=== PATIENT | female | born 1960 | race Caucasian/White ===

== ENCOUNTER → 2016-07-21 | Outpatient (REF) | payer OTHER | LOC: M SFHCWAGY 16:14 | PROVIDERS: ATTEND Nurse Practitioner Family | DX: Z12.4 Encounter for screening for malignant neoplasm of cervix (principal) ==

== ENCOUNTER → 2016-08-06 | Outpatient (CLI) | payer OTHER ==
[2016-08-06 09:57] LABS: ALBUMIN 3.8 GM/DL (3.2-5.2); ALBUMIN/GLOBULIN RATIO 1.27 (1.00-1.93); ALKALINE PHOSPHATASE 120 U/L (45-117); ALT/SGPT 36 U/L (12-78); ANION GAP 7 MEQ/L (8-16); AST/SGOT 19 U/L (15-37); BILIRUBIN,TOTAL 0.8 MG/DL (0.2-1.0); BLOOD UREA NITROGEN 13 MG/DL (7-18); CALCIUM LEVEL 8.4 MG/DL (8.5-10.1); CARBON DIOXIDE LEVEL 32 MEQ/L (21-32); CHLORIDE LEVEL 106 MEQ/L (98-107); CHOLESTEROL LEVEL 166 MG/DL (<200); CREATININE FOR GFR 0.76 MG/DL (0.55-1.02); GLOMERULAR FILTRATION RATE > 60.0 (>51); GLUCOSE, FASTING 104 MG/DL (70-105); SODIUM LEVEL 145 MEQ/L (136-145); TOTAL PROTEIN 6.8 GM/DL (6.4-8.2); TRIGLYCERIDES LEVEL 68 MG/DL (<150)
== END ==
LOC: M LAB 08:59
PROVIDERS: ATTEND Family Medicine
DX: Z00.00 Encounter for general adult medical examination without abnormal findings (principal)

== ENCOUNTER → 2016-08-09 | Outpatient (REF) | payer OTHER | LOC: M LAB REF 15:15 | PROVIDERS: ATTEND Ophthalmology | DX: D23.39 Other benign neoplasm of skin of other parts of face (principal) ==

== ENCOUNTER → 2016-12-23 | Outpatient (CLI) | payer OTHER ==
[2016-12-23 18:41] LABS: ANION GAP 6 MEQ/L (8-16); BLOOD UREA NITROGEN 15 MG/DL (7-18); CARBON DIOXIDE LEVEL 29 MEQ/L (21-32); CHLORIDE LEVEL 106 MEQ/L (98-107); CREATININE FOR GFR 0.75 MG/DL (0.55-1.02); FREE T4 1.24 NG/DL (0.76-1.46); GLOMERULAR FILTRATION RATE > 60.0 (>51); GLUCOSE, FASTING 96 MG/DL (70-105); POTASSIUM SERUM 3.6 MEQ/L (3.5-5.1); SODIUM LEVEL 141 MEQ/L (136-145)
[2016-12-23 18:44] LABS: CALCIUM OXALATE CRYSTALS SMALL
== END ==
LOC: M LAB 16:54
PROVIDERS: ATTEND Hospitalist
DX: I10 Essential (primary) hypertension (principal)

== ENCOUNTER 2018-07-25 07:35 | Emergency (ER) | payer OTHER ==
[~2018-07-25] VITALS: Ht 165.1 cm; Wt 77.3 kg
[2018-07-25] MEDS ORDERED: VITA100T59 PO (07:47)
[2018-07-25] MEDS ORDERED: VITA100066 PO (07:47)
[2018-07-25] MEDS ORDERED: VITATAB11 PO (07:47)
[2018-07-25] MEDS ORDERED: FAMOTIDINE IV BAG 20 MG in APPROPRIATE DILUENT 1 EA IV ONE (08:00)
[2018-07-25] MEDS ORDERED: NS 1,000 ML IV ONE (08:00)
[2018-07-25] MEDS ORDERED: METOCLOPRAMIDE INJ 10MG/2ML VIAL (J2765) IV ONE (08:00)
[2018-07-25 08:35] LABS: BASO % 0.1 % (0.0-1.0); EOS % 0.2 % (0.0-3.0); HEMATOCRIT 43.5 % (36.0-47.0); HEMOGLOBIN 14.3 g/dl (12.0-15.5); LYMPH # 0.5 10^3/uL (1.5-4.5); LYMPH % 5.2 % (24.0-44.0); MEAN CORPUSCULAR HEMOGLOBIN 27.9 pg (27.0-33.0); MEAN CORPUSCULAR HGB CONC 32.9 g/dl (32.0-36.5); MONO # 0.4 10^3/uL (0.0-0.8); MONO % 4.3 % (0.0-5.0); NEUTROPHILS # 8.1 10^3/uL (1.8-7.7); NEUTROPHILS % 89.9 % (36.0-66.0); PLATELET COUNT, AUTOMATED 174 10^3/uL (150-450); RED BLOOD COUNT 5.12 10^6/uL (4.00-5.40)
[2018-07-25 08:58] LABS: ALBUMIN 3.9 GM/DL (3.2-5.2); ALT/SGPT 28 U/L (12-78); BILIRUBIN,DIRECT 0.2 MG/DL (0.0-0.2); BILIRUBIN,TOTAL 0.9 MG/DL (0.2-1.0); BLOOD UREA NITROGEN 16 MG/DL (7-18); CALCIUM LEVEL 8.7 MG/DL (8.5-10.1); CARBON DIOXIDE LEVEL 27 MEQ/L (21-32); CHLORIDE LEVEL 105 MEQ/L (98-107); CREATININE FOR GFR 0.84 MG/DL (0.55-1.30); GLOMERULAR FILTRATION RATE > 60.0 (>51); GLUCOSE, FASTING 159 MG/DL (70-100); LIPASE 87 U/L (73-393); POTASSIUM SERUM 3.8 MEQ/L (3.5-5.1); SODIUM LEVEL 139 MEQ/L (136-145); TOTAL PROTEIN 6.9 GM/DL (6.4-8.2)
--- NOTE | 2018-07-25 08:58 | REP ---
Abdomen series: Four views. History: Abdomen pain. Comparison chest x-ray: November 20, 2006. Findings: Upright chest radiograph shows clear well inflated lungs. No evidence of infiltrate or free subdiaphragmatic air. Heart is mildly prominent with cardiothoracic ratio measuring 49.8%. It is somewhat more prominent than on the prior study. Pulmonary vasculature is not increased. No pleural effusion is seen. Supine and erect views of the abdomen demonstrate small quantities of air and fluid in the large and small bowel. No significant air fluid level is seen. Question enteritis. No mass, organomegaly or pathologic calcification is seen. Impression: Mildly prominent heart. Small quantities of air and fluid in the small and large bowel, question enteritis. No evidence of obstruction or free air. Electronically Signed by Jimenez Calero MD 07/25/2018 06:47 P
[2018-07-25] MEDS ORDERED: CHLO125TA PO (10:33)
[2018-07-25 11:21] VITALS: BP 162/96
--- NOTE | 2018-07-26 08:08 | ECGEPIP ---
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
== END 2018-07-25 11:40 | disposition home or self-care (01) ==
LOC: M ED 07:35
DX: R11.2 Nausea with vomiting, unspecified (principal); R19.7 Diarrhea, unspecified; I10 Essential (primary) hypertension
CPT/HCPCS: 74021; 80048; 80076; 83690; 85025; 87507; 93005; 96361; 96365; 96367; 96374; 99284; J2765

== ENCOUNTER 2019-02-28 06:47 | Day surgery (SDC) | payer OTHER ==
[~2019-02-28] VITALS: Ht 162.6 cm; Wt 77.1 kg
[~2019-02-28 06:47] MED LIST: CHLO125TA PO; VITA100066 PO; VITA100T59 PO; VITATAB11 PO; VITATAB73 PO
[2019-02-28] MEDS ORDERED: NS 1,000 ML IV ONE (07:00)
[2019-02-28] MEDS ORDERED: propofoL 200 MG/20 ML VIAL As Ordered ONE ×3 (07:34→08:49)
[2019-02-28] MEDS ORDERED: METOPROLOL 5 MG/5 ML VIAL As Ordered ONE (07:34)
[2019-02-28] MEDS ORDERED: LIDOCAINE 2% INJ 100 MG/5 ML SDV (FOR ANES.) As Ordered ONE (07:34)
[2019-02-28] MEDS ORDERED: hydrALAZINE INJ 20 MG/ML VIAL As Ordered ONE (07:40)
--- NOTE | 2019-02-28 08:20 | ROOR ---
Patient Name: Annabelle Pérez Procedure Date: 02/28/2019 7:31 AM Date of : 1960 Age: 59 Room: [facility] Gender: Female Note Status: Finalized Procedure: Colonoscopy Indications: Screening for colorectal malignant neoplasm Providers: Bao Lieberman MD Referring MD: Stephani NUNES DO Requesting Provider: Medicines: Monitored Anesthesia Care Complications: No immediate complications. Procedure: Pre-Anesthesia Assessment: - Prior to the procedure, a History and Physical was performed, and patient medications and allergies were reviewed. The patient is competent. The risks and benefits of the procedure and the sedation options and risks were discussed with the patient. All questions were answered and informed consent was obtained. Patient identification and proposed procedure were verified by the physician, the nurse and the anesthesiologist in the procedure room. Mental Status Examination: alert and oriented. Airway Examination: normal oropharyngeal airway and neck mobility. Respiratory Examination: clear to auscultation. CV Examination: normal. Prophylactic Antibiotics: The patient does not require prophylactic antibiotics. Prior Anticoagulants: The patient has taken no previous anticoagulant or antiplatelet agents. ASA Grade Assessment: II - A patient with mild systemic disease. After reviewing the risks and benefits, the patient was deemed in satisfactory condition to undergo the procedure. The anesthesia plan was to use monitored anesthesia care (MAC). Immediately prior to administration of medications, the patient was re-assessed for adequacy to receive sedatives. The heart rate, respiratory rate, oxygen saturations, blood pressure, adequacy of pulmonary ventilation, and response to care were monitored throughout the procedure. The physical status of the patient was re-assessed after the procedure. The Colonoscope was introduced through the anus and advanced to the terminal ileum, with identification of the appendiceal orifice and IC valve. The colonoscopy was performed without difficulty. The patient tolerated the procedure well. The quality of the bowel preparation was good. The terminal ileum, ileocecal valve, appendiceal orifice, and rectum were photographed. Scope insertion time was 4 minutes. Scope withdrawal time was 10 minutes. The total duration of the procedure was 14 minutes. Findings: The perianal and digital rectal examinations were normal. The terminal ileum appeared normal. A 5 mm polyp was found in the descending colon. The polyp was sessile. The polyp was removed with a cold snare. Resection and retrieval were complete. Verification of patient identification for the specimen was done by the physician and nurse using the patient's name, date and medical record number. Estimated blood loss was minimal. Non-bleeding external and internal hemorrhoids were found during retroflexion. The hemorrhoids were small. Impression: - The examined portion of the ileum was normal. - One 5 mm polyp in the descending colon, removed with a cold snare. Resected and retrieved. - Non-bleeding external and internal hemorrhoids. Recommendation: - Patient has a contact number available for emergencies. The signs and symptoms of potential delayed complications were discussed with the patient. Return to normal activities tomorrow. Written discharge instructions were provided to the patient. - High fiber diet. - Continue present medications. - Await pathology results. - Repeat colonoscopy in 5 years for surveillance based on pathology results. - Telephone GI clinic for pathology results in 2 weeks. - Return to primary care physician. Bao Lieberman MD Bao Lieberman MD 02/28/2019 8:17:12 AM Electronically signed by Bao Lieberman MD Number of Addenda: 0 Note Initiated On: 02/28/2019 7:31 AM Estimated Blood Loss: Estimated blood loss was minimal.
[2019-02-28 08:35] VITALS: BP 184/97
== END 2019-02-28 08:45 | disposition home or self-care (01) ==
LOC: M OPP 06:47
PROVIDERS: ATTEND Internal Medicine Gastroenterology
DX: Z12.11 Encounter for screening for malignant neoplasm of colon (principal); K64.8 Other hemorrhoids; D12.4 Benign neoplasm of descending colon; Z88.0 Allergy status to penicillin; Z88.2 Allergy status to sulfonamides; Z83.79 Family history of other diseases of the digestive system

== ENCOUNTER → 2019-03-11 | Outpatient (CLI) | payer OTHER ==
--- NOTE | 2019-03-13 13:38 | SLEEPHOME ---
DATE OF PROCEDURE: 03/11/2019 ORDERED BY: RIAZ Byers Diagnostic home sleep testing was performed due to concern for the obstructive sleep apnea syndrome in this patient with a history of excessive somnolence and effort score for 13. For testing a nocturnal T3 respiratory monitoring device was used. Continuous record was made of pulse, oxygen saturation, airflow, chest, abdominal strain and body position. 9 hours and 41 minutes of data were reviewed. There were 7 hours and 7 minutes marked as time in bed. During the interval marked time in bed, there were 39 respiratory events identified of 10 seconds in duration or greater for a respiratory event index of 5.5. The events were obstructive and primarily related to the supine posture. Baseline pulse rate 58. Pulse rate ranged 47-102. Baseline saturation 95%. Saturations did fall to 89%. Testing was performed in both the supine and nonsupine positions. IMPRESSION: Abnormal home sleep testing with repetitive respiratory events and oxygen desaturations to 89% with a respiratory event index of 5.5 is consistent with the obstructive sleep apnea syndrome. RECOMMENDATIONS: As this patient's obstructive events were primarily associated with the supine position, sleep position retraining for avoidance of the supine posture is recommended. Should the patient's symptoms persist, referral for a more formal sleep evaluation would be reasonable.
== END ==
LOC: M SLEEP HO 15:41
PROVIDERS: ATTEND Physician Assistant
DX: I10 Essential (primary) hypertension (principal)

== ENCOUNTER → 2019-03-15 | Outpatient (CLI) | payer OTHER ==
--- NOTE | 2019-03-15 19:26 | ECHO ---
DATE OF PROCEDURE: 03/15/2019 DATE OF : 1960 AGE: 59 HEIGHT: 63 inches WEIGHT: 170 pounds BODY SURFACE AREA: 1.8 meters squared Outpatient. REFERRING PROVIDER: RIAZ Byers INDICATION: Hypertension. MEASUREMENTS: 2D Measurements: RV: 3.6 cm LV: 4.9 cm Septum: 1.1 cm Posterior wall: 1.1 cm Aortic root: 3.5 cm LA: 4.2 cm LVEF: 75% DOPPLER MEASUREMENTS: AV: 1.49 meters per second LVOT: 1.26 meters per second LVOT diameter: 1.9 cm E: 81, A: 73, E/A ratio: 1.1 Early mitral deceleration time: 250 milliseconds E-prime: 10.2, A prime: 8.8, E/E prime ratio: 7.9 PV: 0.8 meters per second Pulmonary artery acceleration time: 130 milliseconds RVSP: 29 mmHg IVC: 1.8 cm COMMENTS: Sinus bradycardia without intraventricular conduction disturbance. M-mode and two-dimensional echocardiography was performed with pulsed, continuous wave, color flow and tissue Doppler studies. Left ventricular wall thickness upper limits of normal with hyperkinetic wall motion. Slightly dilated left atrium with currently normal Doppler assessment of left ventricular (LV) diastolic function and estimated mean left atrial pressure. Normal right heart chamber sizes and motion with pulmonary arterial pressure upper limits of normal. Normal inferior vena cava (IVC) size and collapse against an elevated central venous pressure. Normal appearing valvular structures with very mild mitral and mild tricuspid insufficiency (physiological findings). Normal aortic root size. No apparent intracardiac mass or pericardial effusion.
== END ==
LOC: M CARPUL 15:49
PROVIDERS: ATTEND Physician Assistant
DX: I10 Essential (primary) hypertension (principal)

== ENCOUNTER → 2019-03-28 | Outpatient (CLI) | payer OTHER ==
--- NOTE | 2019-03-28 16:27 | REPMRS ---
Patient History The patient states she had a clinical breast exam in 03/2019. Patient is postmenopausal and had first child at age 37. Family history of breast cancer in maternal aunt, breast cancer in paternal aunt, colorectal cancer in father. No Hormone Replacement Therapy 3D TOMOSYNTHESIS WAS PERFORMED. Digital Woman Screen Mammo: March 28, 2019 - Exam #: [id number] Bilateral CC and MLO view(s) were taken. Technologist: Kiah Gallagher Technologist Prior study comparison: July 22, 2014, digital woman screen mammo performed at [facility]. August 22, 2012, digital woman screen mammo performed at [facility] [employer] [facility]. FINDINGS: The breast tissue is heterogeneously dense. This may lower the sensitivity of mammography. There has been no change in the appearance of the mammogram from the prior studies. There is a moderate amount of residual fibroglandular tissue which is fairly symmetric. There is no interval development of dominant mass, areas of architectural distortion, or clustered microcalcification typical of malignancy. Assessment: BI-RADS/ACR category 1 mammogram. Negative Mammogram. Recommendation Routine screening mammogram in 1 year (for women over age 40). This mammogram was interpreted with the aid of an FDA-approved computer-aided dectection system. THE LIFETIME RISK OF BREAST CANCER IS 20.0%, THEREFORE SUPPLEMENTAL SCREENING MRI OF THE BREASTS IS RECOMMENDED IN 6 MONTHS. Electronically Signed By: Carlos Franks MD 03/28/19 [id number]
== END ==
LOC: M WHC 15:15
PROVIDERS: ATTEND Nurse Practitioner Family
DX: Z12.31 Encounter for screening mammogram for malignant neoplasm of breast (principal); Z78.0 Asymptomatic menopausal state; Z80.0 Family history of malignant neoplasm of digestive organs

== ENCOUNTER → 2019-03-28 | Outpatient (REF) | payer OTHER ==
[2019-03-30 14:07] LABS: HPV HYBRID CAPTURE II Negative (Negative)
== END ==
LOC: M SFHCWAGY 15:44
PROVIDERS: ATTEND Nurse Practitioner Family
DX: Z12.4 Encounter for screening for malignant neoplasm of cervix (principal); N72 Inflammatory disease of cervix uteri
CPT/HCPCS: 87624; G0123

== ENCOUNTER → 2019-10-08 | Outpatient (CLI) | payer OTHER ==
[~2019-10-08] MED LIST changes: +PROHANCE 279.3MG/ML 15ML VIAL (A9576) As Ordered ONE
--- NOTE | 2019-10-08 16:06 | REP ---
MRI BILATERAL BREASTS WITH AND WITHOUT CONTRAST: HISTORY: High risk for breast cancer. COMPARISON: Mammogram 03/28/2019. Family history of breast cancer in maternal aunt and paternal aunt. TECHNIQUE: Multiple sequences obtained in the axial, coronal, and sagittal planes prior to and following the intravenous administration of 15 mL ProHance. Images are evaluated in [employer] software including dynamic axial T1 fat sat images post gadolinium, subtraction images, color overlay images, CAD imaging, and MIP reconstruction images. There is moderate fibroglandular tissue diffusely bilaterally. There is minimal background parenchymal enhancement. There is no axillary adenopathy. There is no significant cystic change. There are three subcentimeter hyperintensities in the left lobe of the liver, probably representing small hemangiomas or cysts. In the upper inner quadrant of the right breast there is an enhancing oval nodule in the mid third of the breast. This measures 4 x 5 x 3 mm. Margins are somewhat ill defined and slightly irregular. There is type 3 enhancement. No other enhancing nodular morphologic abnormality is seen bilaterally. IMPRESSION: BI-RADS category 4 suspicious. In the upper inner quadrant of the right breast, in the mid third of the breast approximately 7 cm from the nipple, there is a subcentimeter enhancing nodule which is somewhat oval in shape with ill-defined and slightly irregular margins. It measures 4 x 5 x 3 mm. There is no hyperintensity on the T2-weighted images to suggest that this represents a lymph node or fibroadenoma. Given its type 3 enhancement characteristics, I would recommend second-look ultrasound to attempt to identify for ultrasound-guided biopsy. If this cannot be identified by ultrasound, then MR guided biopsy would be recommended. Electronically Signed by Carlos Franks MD 10/08/2019 05:04 P
== END ==
LOC: M RAD 12:40
PROVIDERS: ATTEND Nurse Practitioner Family
DX: Z91.89 Other specified personal risk factors, not elsewhere classified (principal); Z80.3 Family history of malignant neoplasm of breast; K76.89 Other specified diseases of liver; N63.12 Unspecified lump in the right breast, upper inner quadrant
CPT/HCPCS: A9576; C8908

== ENCOUNTER → 2019-10-14 | Outpatient (CLI) | payer OTHER ==
[~2019-10-14] MED LIST changes: -PROHANCE 279.3MG/ML 15ML VIAL (A9576) As Ordered ONE
--- NOTE | 2019-10-15 01:08 | REP ---
RIGHT BREAST ULTRASOUND: Real-time sonographic evaluation of right breast is performed and correlated with the recent MRI performed 10/08/2019. A subcentimeter nodule was identified enhancing in the upper inner right breast. Ultrasound scanning of this region of the right breast does demonstrate a focal mildly lobulated hypoechoic nodule, which measures 7 x 4 x 4 mm. This is felt to correspond to the nodule on the MRI. By ultrasound, it is located approximately 4-5 cm from the nipple. Ultrasound-guided biopsy is recommended. IMPRESSION: ACR 4, suspicious. The enhancing nodule in the upper inner right breast is seen by ultrasound at the 1-o'clock position. A hypoechoic nodule is seen at that location, which is mildly lobulated, measuring 7 x 4 x 4 mm. Recommend ultrasound-guided biopsy. Electronically Signed by Carlos Franks MD 10/15/2019 10:36 A
== END ==
LOC: M RAD 15:38
PROVIDERS: ATTEND Nurse Practitioner Family
DX: Z12.31 Encounter for screening mammogram for malignant neoplasm of breast (principal)

== ENCOUNTER → 2019-10-21 | Outpatient (CLI) | payer OTHER ==
[~2019-10-21] MED LIST changes: +LISI-538 PO
== END ==
LOC: M PLALAB 16:07
PROVIDERS: ATTEND Surgery
DX: Z80.3 Family history of malignant neoplasm of breast (principal); Z80.8 Family history of malignant neoplasm of other organs or systems

== ENCOUNTER → 2019-10-23 | Outpatient (CLI) | payer OTHER ==
[2019-10-23 15:54] VITALS: BP 132/74
--- NOTE | 2019-10-23 16:26 | REP ---
DIAGNOSTIC UNILATERAL RIGHT BREAST MAMMOGRAPHY: Two views. HISTORY: Marker clip placement mammography. The patient is status post ultrasound-guided needle biopsy procedure. Comparison mammography March 28, 2019. Comparison MRI study October 08, 2019 and comparison sonography October 14, 2019. FINDINGS: CC and true mediolateral views of the right breast demonstrate a marker clip in place just medial to the plane of the nipple on the CC view and superiorly on the MLO view consistent with the position of the nodule sonographically and by MRI. IMPRESSION: Marker clip noted in place superiorly and slightly medially.
--- NOTE | 2019-10-24 08:48 | REP ---
FOCUSED RIGHT BREAST SONOGRAPHY: HISTORY: Sonographic guidance. Needle biopsy procedure. Comparison right breast sonography October 14, 2019. FINDINGS: Sonographic guidance is provided to Dr. Bee who performed ultrasound-guided needle biopsy procedure and marker clip placement.
--- NOTE | 2019-10-27 16:55 | ROOPDOC ---
[facility] Report Of Operation Report of Operation DATE OF PROCEDURE: 10/23/19 PREPROCEDURE DIAGNOSES: Right breast suspicious mass. POSTPROCEDURE DIAGNOSES: Right breast suspicious mass. PROCEDURE: Right breast mass ultrasound-guided biopsy with clip placement. SURGEON: Lauren Cole TOYS INSPECTOR: ANESTHESIA: Local anesthetic was used. ESTIMATED BLOOD LOSS: Approximately 1 mL. COMPLICATIONS: None. REMARKS: Clip seen in postbiopsy mammogram at expected position. DESCRIPTION OF PROCEDURE: Lidocaine 1% LOT [id number] Expiration 11/2022 Sodium Bicarbonate 8.4% LOT [id number] Expiration 11/2020 Hydromark clip LOT [id number] Expiration 06/2022 SHAPE 4 Bx device: BARD [id number] x10 cm LOT [id number] Expiration 07/2022 Informed consent was obtained. The most common risk and possible complications including bleeding, hematoma, bruising, infection, injury to surrounding structures were explained to the patient and she expressed understanding. Patient was placed on the bed in the supine position. Appropriate time out was done stating patients name, date of , and the procedure to be performed. The right breast was prepped and draped in the usual fashion. The ultrasound was used to confirm the location of the lesion in the right breast at 1:00 4 centimeters from the nipple. Plain Lidocaine 1% and 8.4% sodium bicarbonate 10:1 mix was used to anesthetize the skin, the biopsy site and tissues along the anticipated biopsy tract. Small skin incision was made with blade number 11. BARD Marquee 14G cannula with introducer ([id number]) was inserted through the incision and advanced under the ultrasound guidance to position immediately adjacent to the lesion. Next, the introducer was removed and BARD Marquee 14G biopsy device was places in the cannula. Pre-biopsy imaging, and post-biopsy imaging were captured. Five good core biopsies were taken at various levels of the lesion. Specimen was placed in formaldehyde, labeled with appropriate biopsy site and patients name, and sent to pathology for evaluation. Next, the biopsy device was withdrawn and a clip introducer was inserted into the biopsy site via the cannula. The Hydromark clip was deployed under direct vision. Post-clip placement image was captured. Manual pressure over the biopsy cavity and tract was held after the clip introducer was withdrawn. No bleeding was noted upon removal of the pressure. Post-biopsy mammogram of the right breast was obtained and showed clip in expected position. Postprocedural dressing was placed. Patient tolerated procedure well. Discharge instructions were discussed with the patient and she expressed understanding. LAUREN COLE DO October 27, 2019 16:47
== END ==
LOC: M WHCPRO 14:30
PROVIDERS: ATTEND Surgery
DX: N60.21 Fibroadenosis of right breast (principal)
CPT/HCPCS: 19083; 77065; 88305; G0279

== ENCOUNTER → 2020-08-03 | Outpatient (CLI) | payer OTHER ==
[~2020-08-03] MED LIST changes: -LISI-538 PO; +LISI20TA33 PO; +PROHANCE 279.3MG/ML 15ML VIAL As Ordered ONE
--- NOTE | 2020-08-04 10:04 | REP ---
INDICATION: RIGHT BREAST MASS. Six-month follow-up on right breast mass seen on screening MRI study. Ultrasound-guided needle biopsy was benign. Patient opted for six-month follow-up. COMPARISON: Comparison breast MRI study October 08, 2019. Comparison sonography October 14, 2019. Status post ultrasound-guided needle biopsy and clip placement October 23, 2019. Comparison clip placement mammography October 23, 2019. TECHNIQUE: Three Casandra MRI imaging was performed with a dedicated breast coil. Axial, coronal, and sagittal T1 and T2 weighted scans were obtained with and without fat saturation in the usual fashion. The study includes dynamically acquired post gadolinium-enhanced imaging with image subtraction. Maximum intensity projection and multi planar reformation imaging is included as well. This study is interpreted with the aid of [employer], an FDA approved computer aided detection (CAD) software program, on a dedicated breast MRI workstation. The gadolinium enhancement dose is 15 mL of intravenous ProHance. FINDINGS: There is a cylindrical T2 hyperintense structure containing a a magnetic field susceptibility artifact in the superior and slightly medial right breast. This represents the HydroMARK marker clip placement device. There is no evidence of significant breast cystic change. No axillary lymphadenopathy is seen on either side. On dynamically acquired sequential postcontrast images the small non masslike focus of enhancement and washout in the superomedial quadrant of the right breast that was seen previously is again noted. This is only a 5 mm focus of enhancement. It is unchanged in size and enhancement characteristics. It is not at the site of the HydroMARK placement indicating that this did not correspond to the biopsied lesion seen on ultrasound. It is more posterior. No change in the 10 month interval since the last MR. No new lesion is seen. Subtraction images are otherwise unremarkable. IMPRESSION: The previously identified enhancing 5 mm focus in the superomedial right breast is again noted unchanged in the 10 month interval since the prior study. This is posterior to the site of the HydroMARK needle biopsy marker placement. It apparently does not correspond with the hypoechoic tissue seen on sonography which was biopsied. BI-RADS category was previously assigned as category 4 suspicious findings. The MR findings are unchanged. Options include MR guided needle biopsy and continued follow-up by MRI scanning.. <Electronically signed by Imtiaz Calero > 08/04/20 1000
== END ==
LOC: M RAD 16:05
PROVIDERS: ATTEND Surgery
DX: N63.10 Unspecified lump in the right breast, unspecified quadrant (principal)

== ENCOUNTER → 2021-02-21 | Outpatient (CLI) | payer OTHER ==
[~2021-02-21] MED LIST changes: -PROHANCE 279.3MG/ML 15ML VIAL As Ordered ONE
[2021-02-21 11:08] LABS: BASO % 0.4 % (0.0-1.0); EOS # 0.1 10^3/uL (0.0-0.5); EOS % 2.1 % (0.0-3.0); HEMOGLOBIN 14.3 g/dl (12.0-15.5); LYMPH # 1.7 10^3/uL (1.5-5.0); LYMPH % 32.6 % (24.0-44.0); MEAN CORPUSCULAR HEMOGLOBIN 28.4 pg (27.0-33.0); MEAN CORPUSCULAR HGB CONC 33.3 g/dl (32.0-36.5); MEAN CORPUSCULAR VOLUME 85.5 fl (80.0-96.0); MONO # 0.7 10^3/uL (0.0-0.8); MONO % 12.6 % (2.0-8.0); NEUTROPHILS # 2.8 10^3/uL (1.5-8.5); NEUTROPHILS % 52.1 % (36.0-66.0); PLATELET COUNT, AUTOMATED 203 10^3/uL (150-450); RED BLOOD COUNT 5.03 10^6/uL (4.00-5.40); WHITE BLOOD COUNT 5.3 10^3/uL (4.0-10.0)
[2021-02-21 11:47] LABS: ALBUMIN 3.5 GM/DL (3.2-5.2); ALT/SGPT 32 U/L (12-78); BILIRUBIN,TOTAL 0.7 MG/DL (0.2-1.0); BLOOD UREA NITROGEN 10 MG/DL (7-18); CALCIUM LEVEL 8.6 MG/DL (8.8-10.2); CARBON DIOXIDE LEVEL 29 MEQ/L (21-32); CHLORIDE LEVEL 109 MEQ/L (98-107); CHOLESTEROL LEVEL 156 MG/DL (<200); CHOLESTEROL RISK RATIO 3.804 (<5); CREATININE FOR GFR 0.68 MG/DL (0.55-1.30); FREE T4 1.18 NG/DL (0.76-1.46); GLOMERULAR FILTRATION RATE > 60.0 (>45); GLUCOSE, FASTING 109 MG/DL (70-100); HDL CHOLESTEROL 41 MG/DL (>40); LDL CHOLESTEROL 94 MG/DL (<100); NON-HDL-C 115 MG/DL; POTASSIUM SERUM 4.1 MEQ/L (3.5-5.1); SODIUM LEVEL 143 MEQ/L (136-145); TOTAL PROTEIN 6.9 GM/DL (6.4-8.2); TRIGLYCERIDES LEVEL 105 MG/DL (<150)
[2021-02-22 10:13] LABS: TOTAL 25(OH) VITAMIN D 24.8 NG/ML (30.0-100.0)
== END ==
LOC: M LAB 10:33
PROVIDERS: ATTEND Family Medicine
DX: I10 Essential (primary) hypertension (principal); Z13.0 Encounter for screening for diseases of the blood and blood-forming organs and certain disorders involving the immune mechanism; E55.9 Vitamin D deficiency, unspecified

== ENCOUNTER → 2021-02-25 | Outpatient (CLI) | payer OTHER ==
[~2021-02-25] MED LIST changes: +PROHANCE 279.3MG/ML 15ML VIAL As Ordered ONE
--- NOTE | 2021-02-26 08:40 | REP ---
INDICATION: ABN IMAGING RT BREAST. COMPARISON: MRI 08/03/2020, 10/08/2019. TECHNIQUE: Three Casandra MRI imaging was performed with a dedicated breast coil. Axial, coronal, and sagittal T1 and T2 weighted scans were obtained with and without fat saturation in the usual fashion. The study includes dynamically acquired post gadolinium-enhanced imaging with image subtraction. Maximum intensity projection and multi planar reformation imaging is included as well. This study is interpreted with the aid of [employer]D, an FDA approved computer aided detection (CAD) software program, on a dedicated breast MRI workstation. The gadolinium enhancement dose is 15 mL of intravenous ProHance. FINDINGS: A biopsy clip is again seen in the upper right breast. No significant cystic change is seen in either breast. No axillary adenopathy is seen. There is mild to moderate scattered fibroglandular tissue symmetrically bilaterally. There is mild background parenchymal enhancement. The previously noted 5 mm focus of enhancement in the upper inner right breast remains stable since 10/08/2019. no new suspicious enhancing morphologic abnormality or mass is visualized. Two subcentimeter cysts are seen in the left lobe of the liver. IMPRESSION: BI-RADS category 3, probably benign MRI. Stable 5 mm focus of enhancement in the upper inner right breast has remained stable since 10/08/2019. Recommend follow-up MRI in 6-12 months. <Electronically signed by Carlos Franks > 02/26/21 [id number]
== END ==
LOC: M RAD 15:49
PROVIDERS: ATTEND Surgery
DX: R92.8 Other abnormal and inconclusive findings on diagnostic imaging of breast (principal)
CPT/HCPCS: A9576; C8908

== ENCOUNTER → 2021-05-19 | Outpatient (CLI) | payer BC ==
[~2021-05-19] MED LIST changes: -PROHANCE 279.3MG/ML 15ML VIAL As Ordered ONE
[2021-05-19 09:49] LABS: ALBUMIN 3.6 GM/DL (3.2-5.2); BLOOD UREA NITROGEN 13 MG/DL (7-18); CALCIUM LEVEL 9.9 MG/DL (8.8-10.2); CARBON DIOXIDE LEVEL 29 MEQ/L (21-32); CHLORIDE LEVEL 108 MEQ/L (98-107); CREATININE FOR GFR 0.86 MG/DL (0.55-1.30); GLOMERULAR FILTRATION RATE > 60.0 (>45); GLUCOSE, FASTING 125 MG/DL (70-100); NT-PRO BNP 64 PG/ML (<125); PHOSPHORUS LEVEL 4.3 MG/DL (2.5-4.9); POTASSIUM SERUM 4.2 MEQ/L (3.5-5.1); SODIUM LEVEL 142 MEQ/L (136-145)
== END ==
LOC: M LAB 07:44
PROVIDERS: ATTEND Internal Medicine Cardiovascular Disease
DX: R06.02 Shortness of breath (principal); I11.9 Hypertensive heart disease without heart failure

== ENCOUNTER → 2021-06-03 | Outpatient (CLI) | payer BC ==
[~2021-06-03] MED LIST changes: +ISOVUE-370 76% 100ML VIAL As Ordered ONE
[2021-06-03 15:49] LABS: APPEARANCE, URINE CLEAR (CLEAR); BACTERIA, URINE AUTO NEGATIVE (NEGATIVE); BILIRUBIN, URINE AUTO NEGATIVE (NEGATIVE); BLOOD, URINE BLOOD NEGATIVE (NEGATIVE); COLOR, URINE YELLOW (YELLOW); GLUCOSE, URINE (UA) AUTO NEGATIVE (NEGATIVE); KETONE, URINE AUTO NEGATIVE (NEGATIVE); LEUKOCYTE ESTERASE, URINE AUTO 1+ (NEGATIVE); NITRITE, URINE AUTO NEGATIVE (NEGATIVE); PROTEIN, URINE AUTO NEGATIVE (NEGATIVE); RBC, URINE AUTO 0 /HPF (0-3); SQUAMOUS EPITHELIAL CELL UR AU 0 /HPF (0-6); UROBILINOGEN, URINE AUTO 0.2 mg/dL (0.0-2.0); WBC, URINE AUTO 6 /HPF (0-3)
[2021-06-03 16:08] LABS: ALBUMIN 4.4 GM/DL (3.2-5.2); BLOOD UREA NITROGEN 26 MG/DL (7-18); CARBON DIOXIDE LEVEL 32 MEQ/L (21-32); CHLORIDE LEVEL 101 MEQ/L (98-107); CREATININE FOR GFR 0.86 MG/DL (0.55-1.30); GLOMERULAR FILTRATION RATE > 60.0 (>45); GLUCOSE, FASTING 105 MG/DL (70-100); PHOSPHORUS LEVEL 3.5 MG/DL (2.5-4.9); POTASSIUM SERUM 3.8 MEQ/L (3.5-5.1); SODIUM LEVEL 138 MEQ/L (136-145)
--- NOTE | 2021-06-03 16:47 | REP ---
INDICATION: HYPERTENSIVE HEART DISEASE W/O HEART FAILURE COMPARISON: None TECHNIQUE: Axial contrast-enhanced images from the lung bases to the mid pelvis to include the distal descending aorta through aortic bifurcation to iliac arteries using angiographic technique. 100 cc Isovue 370 intravenous contrast material administered without complication. Volume rendered CT aortogram along with multiplanar MIP reformations of the renal arteries created. This CT examination was performed using the following dose reduction techniques: Automated exposure control, adjustment of mA and/or kv according to the patient's size, and use of iterative reconstruction technique. FINDINGS: The abdominal aorta and branch vessels including bilateral solitary renal arteries are normal. There is no evidence for atherosclerotic disease, stenosis or occlusion. Further evaluation demonstrates normal appearance to the celiac axis, superior mesenteric artery and inferior mesenteric artery along with bilateral common iliac arteries. No evidence for abdominal aortic aneurysm or dissection. Liver includes a 2.1 cm subcapsular cyst along the posterior aspect of the right lobe just above Riley's pouch. Spleen, pancreas, gallbladder, and bilateral adrenal glands are normal for arterial phase enhanced evaluation. Kidneys are relatively normal, but includes small nonobstructing nephroliths up to 3 mm. Visualized portions of the small and large bowel are normal. No ascites. No free air. 2 cm fat containing periumbilical hernia identified. Visualized musculoskeletal structures are intact. IMPRESSION: 1. Normal appearance of the aorta and branch vessels including bilateral solitary renal arteries. 2. Small subcapsular hypodensity along the posterior aspect of the right hepatic lobe likely benign cyst. 3. Few nonobstructing bilateral nephroliths. 4. Small fat containing periumbilical hernia. <Electronically signed by Chuck Joyner > 06/03/21 [id number]
== END ==
LOC: M RAD 14:37
PROVIDERS: ATTEND Internal Medicine Cardiovascular Disease
DX: I11.9 Hypertensive heart disease without heart failure (principal); N20.0 Calculus of kidney; K42.9 Umbilical hernia without obstruction or gangrene
CPT/HCPCS: 36415; 74175; 80069; 81001; Q9967

== ENCOUNTER → 2021-07-16 | Outpatient (CLI) | payer BC ==
[~2021-07-16] MED LIST changes: +ISOVUE-300 61% 50ML VIAL As Ordered ONE; -ISOVUE-370 76% 100ML VIAL As Ordered ONE; +LIDOCAINE 1% MDV 20ML VIAL As Ordered ONE; +methylPREDNISolone SUSP 40MG/ML 1ML VIAL (DEPO MEDROL) As Ordered ONE
== END ==
LOC: M RADPRO 12:50
PROVIDERS: ATTEND Physician Assistant Surgical
DX: M16.11 Unilateral primary osteoarthritis, right hip (principal)
CPT/HCPCS: 20610; 77002; J1030; Q9967

== ENCOUNTER → 2021-12-29 | Outpatient (CLI) | payer BC ==
[~2021-12-29] MED LIST changes: -ISOVUE-300 61% 50ML VIAL As Ordered ONE; -LIDOCAINE 1% MDV 20ML VIAL As Ordered ONE; -methylPREDNISolone SUSP 40MG/ML 1ML VIAL (DEPO MEDROL) As Ordered ONE
== END ==
LOC: M WHC 15:03
PROVIDERS: ATTEND Nurse Practitioner Women's Health
DX: N63.10 Unspecified lump in the right breast, unspecified quadrant (principal); N60.11 Diffuse cystic mastopathy of right breast; R92.8 Other abnormal and inconclusive findings on diagnostic imaging of breast; Z91.89 Other specified personal risk factors, not elsewhere classified; Z78.0 Asymptomatic menopausal state
CPT/HCPCS: 77066; G0279

== ENCOUNTER → 2022-02-28 | Outpatient (CLI) | payer BC ==
[~2022-02-28] MED LIST changes: +PROHANCE 279.3MG/ML 15ML VIAL As Ordered ONE
== END ==
LOC: M RAD 13:58
PROVIDERS: ATTEND Nurse Practitioner Women's Health
DX: N63.10 Unspecified lump in the right breast, unspecified quadrant (principal); R92.8 Other abnormal and inconclusive findings on diagnostic imaging of breast; Z91.89 Other specified personal risk factors, not elsewhere classified
CPT/HCPCS: A9576; C8908

== ENCOUNTER → 2022-06-28 | Outpatient (CLI) | payer BC ==
[~2022-06-28] MED LIST changes: -PROHANCE 279.3MG/ML 15ML VIAL As Ordered ONE
[2022-06-28 16:39] LABS: ALBUMIN 3.8 G/DL (3.2-5.2); BLOOD UREA NITROGEN 21 MG/DL (9-23); CALCIUM LEVEL 9.5 MG/DL (8.3-10.6); CARBON DIOXIDE LEVEL 29 MMOL/L (20-31); CHLORIDE LEVEL 103 MMOL/L (98-107); CREATININE FOR GFR 0.83 MG/DL (0.55-1.30); GLOMERULAR FILTRATION RATE > 60.0 (>45); GLUCOSE, FASTING 151 MG/DL (74-106); PHOSPHORUS LEVEL 3.3 MG/DL (2.4-5.1); POTASSIUM SERUM 3.7 MMOL/L (3.5-5.1); SODIUM LEVEL 139 MMOL/L (136-145)
== END ==
LOC: M LAB 15:35
PROVIDERS: ATTEND Internal Medicine Cardiovascular Disease
DX: I11.9 Hypertensive heart disease without heart failure (principal); R06.02 Shortness of breath; R60.0 Localized edema

== ENCOUNTER → 2022-07-07 | Outpatient (CLI) | payer BC | LOC: M LAB 16:06 | PROVIDERS: ATTEND Nurse Practitioner Adult Health | DX: T58.91XA Toxic effect of carbon monoxide from unspecified source, accidental (unintentional), initial encounter (principal) ==

== ENCOUNTER → 2022-11-29 | Outpatient (CLI) | payer BC | LOC: M RAD 09:53 | PROVIDERS: ATTEND Nurse Practitioner Adult Health | DX: R10.11 Right upper quadrant pain (principal) ==

== ENCOUNTER → 2022-12-22 | Outpatient (CLI) | payer BC ==
[~2022-12-22] MED LIST changes: +GASTROGRAFIN SOLUTION 30ML As Ordered ONE; +ISOVUE-370 76% 100ML VIAL As Ordered ONE
== END ==
LOC: M RAD 15:29
PROVIDERS: ATTEND Nurse Practitioner Adult Health
DX: D37.6 Neoplasm of uncertain behavior of liver, gallbladder and bile ducts (principal)
CPT/HCPCS: 74160; Q9963; Q9967

== ENCOUNTER → 2023-05-15 | Outpatient (CLI) | payer BC ==
[~2023-05-15] MED LIST changes: -GASTROGRAFIN SOLUTION 30ML As Ordered ONE; -ISOVUE-370 76% 100ML VIAL As Ordered ONE
[2023-05-15 14:43] LABS: HEMATOCRIT 44.6 % (36.0-47.0); HEMOGLOBIN 14.5 g/dl (12.0-15.5); MEAN CORPUSCULAR HEMOGLOBIN 27.6 pg (27.0-33.0); MEAN CORPUSCULAR HGB CONC 32.5 g/dl (32.0-36.5); PLATELET COUNT, AUTOMATED 220 10^3/uL (150-450); RED BLOOD COUNT 5.25 10^6/uL (4.00-5.40); WHITE BLOOD COUNT 6.5 10^3/uL (4.0-10.0)
[2023-05-15 15:14] LABS: ALBUMIN 3.7 G/DL (3.2-5.2); BLOOD UREA NITROGEN 16 MG/DL (9-23); CALCIUM LEVEL 9.1 MG/DL (8.3-10.6); CARBON DIOXIDE LEVEL 29 MMOL/L (20-31); CHLORIDE LEVEL 102 MMOL/L (98-107); CREATININE FOR GFR 0.71 MG/DL (0.55-1.30); GLOMERULAR FILTRATION RATE > 60.0 (>45); GLUCOSE, FASTING 187 MG/DL (74-106); POTASSIUM SERUM 3.6 MMOL/L (3.5-5.1); SODIUM LEVEL 139 MMOL/L (136-145)
== END ==
LOC: M LAB 14:11
PROVIDERS: ATTEND Internal Medicine Cardiovascular Disease
DX: I50.32 Chronic diastolic (congestive) heart failure (principal); I49.3 Ventricular premature depolarization; I11.0 Hypertensive heart disease with heart failure

== ENCOUNTER → 2023-06-16 | Outpatient (CLI) | payer BC ==
[2023-06-16 11:57] LABS: ALBUMIN 3.8 G/DL (3.2-5.2); BLOOD UREA NITROGEN 13 MG/DL (9-23); CARBON DIOXIDE LEVEL 32 MMOL/L (20-31); CHLORIDE LEVEL 104 MMOL/L (98-107); CREATININE FOR GFR 0.74 MG/DL (0.55-1.30); GLOMERULAR FILTRATION RATE > 60.0 (>45); GLUCOSE, FASTING 124 MG/DL (74-106); MAGNESIUM LEVEL 1.9 MG/DL (1.8-2.4); PHOSPHORUS LEVEL 3.8 MG/DL (2.4-5.1); POTASSIUM SERUM 3.8 MMOL/L (3.5-5.1); SODIUM LEVEL 143 MMOL/L (136-145)
== END ==
LOC: M LAB 06-02 15:57
PROVIDERS: ATTEND Internal Medicine Cardiovascular Disease
DX: I11.0 Hypertensive heart disease with heart failure (principal); I50.32 Chronic diastolic (congestive) heart failure

== ENCOUNTER → 2023-10-11 | Outpatient (REF) | payer BC | LOC: M LAB REF 16:29 | PROVIDERS: ATTEND Physician Assistant | DX: B34.9 Viral infection, unspecified (principal) ==

== ENCOUNTER → 2024-01-09 | Outpatient (CLI) | payer BC | LOC: M PLAIMG 15:09 | PROVIDERS: ATTEND Internal Medicine Cardiovascular Disease | DX: I71.21 Aneurysm of the ascending aorta, without rupture (principal); I27.20 Pulmonary hypertension, unspecified; I08.3 Combined rheumatic disorders of mitral, aortic and tricuspid valves ==

== ENCOUNTER → 2024-03-18 | Outpatient (REF) | payer BC ==
[~2024-03-18] MED LIST changes: +LOSA100T46 PO; +VITA100093 PO
[2024-03-18 21:18] LABS: APPEARANCE, URINE CLOUDY (CLEAR); BACTERIA, URINE AUTO NEGATIVE (NEGATIVE); BILIRUBIN, URINE AUTO NEGATIVE (NEGATIVE); BLOOD, URINE BLOOD 3+ (NEGATIVE); CALCIUM OXALATE CRYSTALS LARGE; COLOR, URINE AMBER (YELLOW); GLUCOSE, URINE (UA) AUTO NEGATIVE (NEGATIVE); KETONE, URINE AUTO NEGATIVE (NEGATIVE); LEUKOCYTE ESTERASE, URINE AUTO NEGATIVE (NEGATIVE); MUCUS, URINE SMALL (NEGATIVE); NITRITE, URINE AUTO NEGATIVE (NEGATIVE); PROTEIN, URINE AUTO 2+ mg/dL (NEGATIVE); RBC, URINE AUTO TNTC /HPF (0-3); SQUAMOUS EPITHELIAL CELL UR AU 1 /HPF (0-6); UROBILINOGEN, URINE AUTO 0.2 mg/dL (0.0-2.0); WBC, URINE AUTO 0 /HPF (0-3)
== END ==
LOC: M LAB REF 20:54
PROVIDERS: ATTEND Physician Assistant Medical
DX: N39.0 Urinary tract infection, site not specified (principal)

== ENCOUNTER → 2024-04-15 | Outpatient (REF) | payer BC ==
[~2024-04-15] MED LIST changes: +SPIR-10 PO
[2024-04-17 16:33] LABS: HPV APTIMA Not Detected (Not Detected)
== END ==
LOC: M SFHCWAGY 16:57
PROVIDERS: ATTEND Obstetrics & Gynecology
DX: R31.9 Hematuria, unspecified (principal); Z12.4 Encounter for screening for malignant neoplasm of cervix

== ENCOUNTER → 2024-04-17 | Outpatient (CLI) | payer BC | LOC: M RAD 15:26 | PROVIDERS: ATTEND Obstetrics & Gynecology | DX: R10.2 Pelvic and perineal pain (principal) ==

== ENCOUNTER → 2024-04-29 | Outpatient (REF) | payer BC | LOC: M LAB REF 17:30 | PROVIDERS: ATTEND Nurse Practitioner Adult Health | DX: R31.0 Gross hematuria (principal) ==

== ENCOUNTER → 2024-05-27 | Outpatient (CLI) | payer BC | LOC: M WHC 15:58 | PROVIDERS: ATTEND Obstetrics & Gynecology | DX: Z12.31 Encounter for screening mammogram for malignant neoplasm of breast (principal); R92.333 Mammographic heterogeneous density, bilateral breasts ==

== ENCOUNTER → 2024-06-20 | Outpatient (CLI) | payer BC ==
[2024-06-20 08:14] LABS: ALBUMIN 3.6 G/DL (3.2-5.2); ALKALINE PHOSPHATASE 103 U/L (35-104); ALT/SGPT 19 U/L (7.0-40); AST/SGOT 11 U/L (<34); BILIRUBIN,TOTAL 0.7 MG/DL (0.3-1.2); BLOOD UREA NITROGEN 17 MG/DL (9-23); CALCIUM LEVEL 9.2 MG/DL (8.3-10.6); CARBON DIOXIDE LEVEL 30 MMOL/L (20-31); CHLORIDE LEVEL 107 MMOL/L (98-107); CHOLESTEROL LEVEL 151 MG/DL (<200); CHOLESTEROL RISK RATIO 3.67 (<5); CREATININE FOR GFR 0.78 MG/DL (0.55-1.30); GLOMERULAR FILTRATION RATE > 60.0 (>45); GLUCOSE, FASTING 154 MG/DL (74-106); HDL CHOLESTEROL 41.1 MG/DL (>40); LDL CHOLESTEROL 82.9 MG/DL (<100); MAGNESIUM LEVEL 1.8 MG/DL (1.8-2.4); NON-HDL-C 109.9 MG/DL; POTASSIUM SERUM 3.8 MMOL/L (3.5-5.1); SODIUM LEVEL 144 MMOL/L (136-145); TOTAL PROTEIN 6.4 G/DL (5.7-8.2); TRIGLYCERIDES LEVEL 135 MG/DL (<150)
== END ==
LOC: M LAB 07:13
PROVIDERS: ATTEND Physician Assistant
DX: I50.32 Chronic diastolic (congestive) heart failure (principal); I49.3 Ventricular premature depolarization

== ENCOUNTER → 2024-07-10 | Outpatient (REF) | LOC: M EMP 10:31 | PROVIDERS: ATTEND Family Medicine | DX: Z01.89 Encounter for other specified special examinations (principal) ==

== ENCOUNTER 2024-09-10 13:22 | Observation (INO) | payer BC ==
[~2024-09-10] VITALS: Ht 162.6 cm; Wt 76.0 kg
[2024-09-10 16:31] VITALS: BP 149/86; TEMP 97.6; O2SAT 97
[2024-09-10] MEDS ORDERED: MIDAZOLAM INJ 2MG/2ML VIAL As Ordered ONE (17:57)
[2024-09-10] MEDS ORDERED: fentaNYL 100 MCG/2 ML INJECTION As Ordered ONE (17:57)
[2024-09-10] MEDS ORDERED: propofoL 200 MG/20 ML VIAL As Ordered ONE (17:59)
[2024-09-10] MEDS ORDERED: LIDOCAINE 2% 100MG/5ML SDV (FOR ANES.) As Ordered ONE (17:59)
[2024-09-10] MEDS ORDERED: ONDANSETRON 4MG 2ML VIAL As Ordered ONE (18:32)
[2024-09-10] MEDS: ceFAZolin SODIUM 2 GM VIAL As Ordered ONE (18:34)
[2024-09-10] MEDS ORDERED: ACETAMINOPHEN 1000MG/100ML IV BAG As Ordered ONE (18:51)
[2024-09-10] MEDS ORDERED: ePHEDrine SULFATE 25 MG/5 ML(5MG/ML) SYRINGE As Ordered ONE (18:59)
[2024-09-10] MEDS: ISOVUE-300 61% 100ML VIAL As Ordered ONE (19:05)
[2024-09-10] MEDS ORDERED: ONDANSETRON 4MG 2ML VIAL IV PRN (19:10)
[2024-09-10] MEDS ORDERED: oxyCODONE 5MG TAB PO PRN (19:10)
[2024-09-10] MEDS ORDERED: fentaNYL 100 MCG/2 ML INJECTION IV PRN (19:10)
[2024-09-10] MEDS: PHENAZOPYRIDINE 100 MG TAB PO PRN (19:56)
[2024-09-10] MEDS: oxyBUTYnin 5 MG TAB PO PRN (19:56)
[2024-09-10] MEDS: HYDROMORPHONE HCL 0.5 MG/ 0.5 ML SYRINGE IV PRN (19:57)
[2024-09-10 20:25] VITALS: BP 153/76; TEMP 97.1; O2SAT 94
[2024-09-10] MEDS: LR 1,000 ML IV SCH (20:53)
[2024-09-10 20:55] VITALS: BP 152/81; TEMP 97.1; O2SAT 95
[2024-09-10 21:25] VITALS: BP 143/75; TEMP 97.2; O2SAT 94
[2024-09-10 21:30] VITALS: BP 142/76; TEMP 97.2; O2SAT 94
[2024-09-10 21:40] LABS: BASO % 0.1 % (0.0-1.0); EOS % 0.4 % (0.0-3.0); HEMATOCRIT 37.2 % (36.0-47.0); HEMOGLOBIN 12.5 g/dl (12.0-15.5); LYMPH # 1.2 10^3/uL (1.5-5.0); LYMPH % 11.7 % (24.0-44.0); MEAN CORPUSCULAR HGB CONC 33.6 g/dl (32.0-36.5); MEAN CORPUSCULAR VOLUME 83.2 fl (80.0-96.0); MONO # 0.3 10^3/uL (0.0-0.8); MONO % 3.2 % (2.0-8.0); NEUTROPHILS # 8.6 10^3/uL (1.5-8.5); NEUTROPHILS % 84.2 % (36.0-66.0); PLATELET COUNT, AUTOMATED 185 10^3/uL (150-450); RED BLOOD COUNT 4.47 10^6/uL (4.00-5.40); WHITE BLOOD COUNT 10.2 10^3/uL (4.0-10.0)
[2024-09-10] MEDS ORDERED: KETOROLAC 30 MG/ML 1ML VIAL IV PRN (22:05)
[2024-09-10 22:07] LABS: BLOOD UREA NITROGEN 19 MG/DL (9-23); CALCIUM LEVEL 8.6 MG/DL (8.3-10.6); CARBON DIOXIDE LEVEL 28 MMOL/L (20-31); CHLORIDE LEVEL 104 MMOL/L (98-107); CREATININE FOR GFR 0.91 MG/DL (0.55-1.30); GLOMERULAR FILTRATION RATE > 60.0 (>45); GLUCOSE, FASTING 189 MG/DL (74-106); POTASSIUM SERUM 3.6 MMOL/L (3.5-5.1); SODIUM LEVEL 142 MMOL/L (136-145)
[2024-09-10] MEDS: KETOROLAC 30 MG/ML 1ML VIAL IV PRN (22:25)
[2024-09-10] MEDS ORDERED: SPIR50TA4 PO (23:12)
[2024-09-10] MEDS ORDERED: CARV12.5 PO (23:14)
[2024-09-10] MEDS ORDERED: LOSA100T46 PO (23:16)
[2024-09-10] MEDS ORDERED: HOME MED LIST COMPLETE! XX SCH (23:20)
[2024-09-10 23:25] VITALS: BP 146/72; TEMP 97.1; O2SAT 96
[2024-09-11] VITALS (9 sets, daily range): BP systolic 111–175; BP diastolic 56–96; TEMP 97.1–97.8; O2SAT 91–97
[2024-09-11] MEDS: ACETAMINOPHEN 325 MG TAB PO PRN (00:38)
[2024-09-11] MEDS: NITROFURANTOIN (MACROBID) 100 MG CAP PO ONE (06:25)
[2024-09-11] MEDS ORDERED: MAALOX 30 ML SUSP *UDC PO PRN (06:35)
[2024-09-11] MEDS ORDERED: MOM 30ML SUSPENSION UDC PO PRN (06:35)
[2024-09-11] MEDS ORDERED: GLUCAGON INJ 1MG VIAL SC PRN (06:40)
[2024-09-11] MEDS ORDERED: DEXTROSE 50% 50ML SYRINGE IV PRN (06:40)
[2024-09-11] MEDS ORDERED: GLUCOSE 4 GM CHEW PO PRN (06:40)
[2024-09-11 07:30] LABS: BASO % 0.1 % (0.0-1.0); HEMATOCRIT 40.2 % (36.0-47.0); LYMPH # 0.9 10^3/uL (1.5-5.0); LYMPH % 10.6 % (24.0-44.0); MEAN CORPUSCULAR HEMOGLOBIN 27.1 pg (27.0-33.0); MEAN CORPUSCULAR HGB CONC 32.3 g/dl (32.0-36.5); MEAN CORPUSCULAR VOLUME 83.8 fl (80.0-96.0); MONO # 0.2 10^3/uL (0.0-0.8); MONO % 2.5 % (2.0-8.0); NEUTROPHILS # 7.4 10^3/uL (1.5-8.5); NEUTROPHILS % 86.4 % (36.0-66.0); PLATELET COUNT, AUTOMATED 225 10^3/uL (150-450); WHITE BLOOD COUNT 8.5 10^3/uL (4.0-10.0)
[2024-09-11] MEDS: INSULIN LISPRO (NovoLOG) PER UNIT SC SCH (08:31)
[2024-09-11] MEDS: ENOXAPARIN 40MG/0.4ML SYRINGE (J1650 PER 10MG) SC SCH (08:31)
[2024-09-11] MEDS: VITAMIN D 1,000 INTERNATIONAL UNITS TABLET PO SCH (10:17)
[2024-09-11] MEDS: CARVedilol 12.5 MG TAB PO SCH (10:17)
[2024-09-11] MEDS ORDERED: CHLORTHALIDONE 25 MG TAB PO STA (11:10)
[2024-09-11] MEDS: SPIRONOLACTONE 50 MG TAB PO SCH (11:18)
[2024-09-11] MEDS: CHLORTHALIDONE 25 MG TAB PO SCH (11:19)
[2024-09-11] MEDS ORDERED: KETO10TAB PO (12:54)
[2024-09-11] MEDS ORDERED: INSULIN LISPRO (NovoLOG) PER UNIT SC SCH (21:00)
[2024-09-11] MEDS ORDERED: LOSARTAN 50MG TABLET PO SCH (21:00)
== END 2024-09-11 14:45 | disposition home or self-care (01) ==
LOC: PREOBSVTOIN 15:53 → INTOOBSV 15:56 → M MS4PR 15:56
PROVIDERS: ADMIT Student in an Organized Health Care Education/Training Program; ATTEND Student in an Organized Health Care Education/Training Program
DX: N20.0 Calculus of kidney (principal); G89.18 Other acute postprocedural pain; I10 Essential (primary) hypertension; G47.33 Obstructive sleep apnea (adult) (pediatric); R73.03 Prediabetes; M19.90 Unspecified osteoarthritis, unspecified site; Z79.899 Other long term (current) drug therapy; Z88.2 Allergy status to sulfonamides; Z88.1 Allergy status to other antibiotic agents
CPT/HCPCS: 36415; 52356; 76000; 80048; 82365; 83735; 85025; 96372; 96374; 96376; C1769; C1894; C2617; J0131; J0690; J1100; J1171; J1650; J1815; J1885; J2250; J2405; J3010; Q9967

== ENCOUNTER 2024-10-17 08:07 | Day surgery (SDC) | payer OTHER ==
[~2024-10-17] VITALS: Ht 165.1 cm; Wt 77.1 kg
[~2024-10-17 08:07] MED LIST changes: +CALC600C3 PO; +CARV12.5 PO; +GNP250TA9 PO; +KETO10TAB PO; +SPIR50TA4 PO; +TYLE650T38 PO; +VITA-172 PO
[2024-10-17] MEDS ORDERED: LR 1,000 ML IV SCH (09:10)
[2024-10-17] MEDS: ceFAZolin SOD 2 GM IV ONCE IV ONE (10:00)
[2024-10-17] MEDS ORDERED: PYRI1TAB5 PO (10:21)
[2024-10-17] MEDS ORDERED: OXYB5TAB14 PO (10:21)
[2024-10-17] MEDS ORDERED: HYDR-3713 PO (10:21)
[2024-10-17] MEDS: ISOVUE-300 61% 100ML VIAL As Ordered ONE (10:23)
[2024-10-17] MEDS ORDERED: LIDOCAINE 2% 100MG/5ML SDV (FOR ANES.) As Ordered ONE (10:23)
[2024-10-17] MEDS ORDERED: ONDANSETRON 4MG 2ML VIAL As Ordered ONE (10:23)
[2024-10-17] MEDS ORDERED: fentaNYL 100 MCG/2 ML INJECTION As Ordered ONE (10:23)
[2024-10-17] MEDS ORDERED: propofoL 200 MG/20 ML VIAL As Ordered ONE (10:23)
[2024-10-17 11:26] VITALS: BP 142/76; TEMP 97.3; O2SAT 98
== END 2024-10-17 11:35 | disposition home or self-care (01) ==
LOC: M SDC 08:07 → M OR 08:46 → UNDOADMIN 08:46 → M SDC 11:35 → UNDODISIN 11:35
PROVIDERS: ATTEND Urology
DX: N20.0 Calculus of kidney (principal); G47.30 Sleep apnea, unspecified; Z88.2 Allergy status to sulfonamides; Z88.1 Allergy status to other antibiotic agents; Z79.899 Other long term (current) drug therapy
CPT/HCPCS: 50590; 52332; 74018; 76000; C2617; J0690; J2405; J3010

== ENCOUNTER → 2024-11-06 | Outpatient (CLI) | payer OTHER ==
[~2024-11-06] MED LIST changes: +HYDR-3713 PO; +OXYB5TAB14 PO; +PYRI1TAB5 PO
== END ==
LOC: M RAD 11:00
PROVIDERS: ATTEND Urology
DX: N20.0 Calculus of kidney (principal); Z96.0 Presence of urogenital implants

== ENCOUNTER → 2025-04-24 | Outpatient (CLI) | payer MEDICARE | LOC: M RAD 17:31 | PROVIDERS: ATTEND Urology | DX: R10.A0 Flank pain, unspecified side (principal); J84.10 Pulmonary fibrosis, unspecified; J98.11 Atelectasis; N20.0 Calculus of kidney; K42.9 Umbilical hernia without obstruction or gangrene ==